=== PATIENT | female | born 1995 | race Caucasian/White ===

== ENCOUNTER 2017-11-05 18:25 | Inpatient (IN) | payer BC, OTHER ==
[~2017-11-05] VITALS: Ht 157.5 cm; Wt 59.0 kg
[~2017-11-05 18:25] MED LIST: NOHOMEMEDICATIONS
[2017-11-05 18:41] VITALS: BP 100/56
[2017-11-05 19:04] LABS: HEMATOCRIT 36.6 % (37.0-47.0); HEMOGLOBIN 12.2 gm/dL (12.0-15.0); MCH 25.7 pg (26.0-34.0); MCHC 33.4 g/dL (28.0-37.0); MCV 77.1 fL (80.0-100.0); PLATELET COUNT 128 thou/uL (150-400); RBC 4.75 mil/uL (4.20-5.00); RDW 14.6 % (10.5-14.5); WBC 2.2 thou/uL (4.0-11.0)
[2017-11-05 19:11] LABS: CALCIUM 8.3 mg/dL (8.5-10.1); POTASSIUM 3.6 mmol/L (3.5-5.1)
[2017-11-05 20:15] VITALS: BP 100/56
[2017-11-05 20:30] LABS: URINE BILIRUBIN NEGATIVE (Negative); URINE BLOOD NEGATIVE (Negative); URINE CLARITY CLEAR; URINE COLOR YELLOW; URINE GLUCOSE-RANDOM* NEGATIVE (Negative); URINE KETONES 1+ (Negative); URINE LEUKOCYTES-REFLEX NEGATIVE (Negative); URINE NITRITE-REFLEX NEGATIVE (Negative); URINE PROTEIN (DIPSTICK) TRACE (Negative); URINE UROBILINOGEN 0.2 E.U./dl (0.2-1.0)
[2017-11-05 20:41] VITALS: BP 112/54
[2017-11-05 21:01] VITALS: BP 112/54
[2017-11-05] MEDS ORDERED: ADDERALL 20 MG20 MG PO (21:42)
[2017-11-05] MEDS ORDERED: HYDROCODONE-AP1 EAC6 PO (21:43)
[2017-11-05] MEDS ORDERED: FLEXERIL PO (21:44)
[2017-11-06 00:27] VITALS: BP 96/51
[2017-11-06 05:51] VITALS: BP 110/59
[2017-11-06 08:14] VITALS: BP 110/60
[2017-11-06 10:49] LABS: HEMOGLOBIN 10.8 gm/dL (12.0-15.0); MCV 77.2 fL (80.0-100.0)
[2017-11-06 10:50] LABS: MCH 26.1 pg (26.0-34.0); MCHC 33.8 g/dL (28.0-37.0); RBC 4.14 mil/uL (4.20-5.00); RDW 14.9 % (10.5-14.5)
[2017-11-06 10:55] LABS: CALCIUM 8.8 mg/dL (8.5-10.1); CREATININE 0.8 mg/dL (0.6-1.0); POTASSIUM 3.8 mmol/L (3.5-5.1)
[2017-11-06 11:03] LABS: WBC 1.9 thou/uL (4.0-11.0)
[2017-11-06 16:34] VITALS: BP 110/63
[2017-11-06 19:38] VITALS: BP 115/62
[2017-11-07 03:40] LABS: HEMATOCRIT 28.6 % (37.0-47.0); HEMOGLOBIN 9.5 gm/dL (12.0-15.0); MCHC 33.4 g/dL (28.0-37.0); MCV 77.7 fL (80.0-100.0); RBC 3.68 mil/uL (4.20-5.00); RDW 14.5 % (10.5-14.5)
[2017-11-07 03:42] VITALS: BP 106/63
[2017-11-07 03:50] LABS: CALCIUM 7.9 mg/dL (8.5-10.1); CREATININE 0.6 mg/dL (0.6-1.0); POTASSIUM 3.8 mmol/L (3.5-5.1)
[2017-11-07 08:00] VITALS: BP 105/69
[2017-11-07 10:27] VITALS: BP 105/69
== END 2017-11-07 11:20 | disposition home or self-care (01) | DRG 607 ==
LOC: ER 18:25 → 4N 19:25 → EROBS 19:25 → 4N 20:15
PROVIDERS: Hospitalist; Nurse Practitioner Family; Physician Assistant
DX: L27.0 Generalized skin eruption due to drugs and medicaments taken internally (principal); S06.0X9A Concussion with loss of consciousness of unspecified duration, initial encounter; E87.1 Hypo-osmolality and hyponatremia; D72.819 Decreased white blood cell count, unspecified; D69.6 Thrombocytopenia, unspecified; T37.0X5A Adverse effect of sulfonamides, initial encounter; Y92.89 Other specified places as the place of occurrence of the external cause; F90.9 Attention-deficit hyperactivity disorder, unspecified type; F41.9 Anxiety disorder, unspecified; X58.XXXA Exposure to other specified factors, initial encounter; Y93.89 Activity, other specified; Y99.8 Other external cause status; Z88.8 Allergy status to other drugs, medicaments and biological substances
CPT/HCPCS: 10790